=== PATIENT | male | born 1995 | race Caucasian/White ===

== ENCOUNTER 2016-08-22 17:11 | Emergency (ER) | payer OTHER ==
[2016-08-22 17:21] VITALS: BP 124/98; PULSE 84; RESP 14; TEMP 98.2; O2SAT 94
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
== END 2016-08-22 18:18 | disposition home or self-care (01) ==
DX: S43.101A Unspecified dislocation of right acromioclavicular joint, initial encounter (principal); V18.0XXA Pedal cycle driver injured in noncollision transport accident in nontraffic accident, initial encounter; Y92.89 Other specified places as the place of occurrence of the external cause; Y99.8 Other external cause status; Y93.89 Activity, other specified
CPT/HCPCS: A4565

== ENCOUNTER 2018-10-02 18:11 | Emergency (ER) | payer BC, OTHER ==
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
[2018-10-02 19:30] VITALS: BP 112/66
== END 2018-10-02 19:40 | disposition home or self-care (01) ==
DX: M25.511 Pain in right shoulder (principal); S43.401A Unspecified sprain of right shoulder joint, initial encounter; V18.0XXA Pedal cycle driver injured in noncollision transport accident in nontraffic accident, initial encounter; Y93.55 Activity, bike riding
CPT/HCPCS: A4565